=== PATIENT | male | born 1945 | race Caucasian/White ===

== ENCOUNTER 2021-01-12 02:00 | Outpatient (CLI) | payer OTHER, SELFPAY ==
--- NOTE | 2021-01-12 07:45 | DI.RAD_ITS ---
Exam(s) XR CERVICAL SPINE COMP 4-5V EXAM: XR CERVICAL SPINE COMP 4-5V CLINICAL HISTORY: popping/cracking of neck,NECK PAIN, M54.2. TECHNIQUE: 2D digital imaging was performed. COMPARISON: No exams were available for comparison FINDINGS: BONES: No fracture or destructive lesion. Facet joint degenerative changes. There is neural foramina l narrowing at multiple levels bilaterally, mild to moderate. DISKS: Disc space narrowing and osteophyte formation at C5-6 and C6-7. The remaining intervertebral disc spaces are maintained. ALIGNMENT: Cervical spinal alignment is within normal limits. The odontoid and atlantoaxial articulat ions are normal. SOFT TISSUE: Normal. The lung apices are clear. IMPRESSION: Degenerative changes, greatest at C5-6 and C6-7. DATA REPOSITORY: RADIATION DOSE DELIVERED:
== END 2021-01-12 02:20 ==
PROVIDERS: PCP Nurse Practitioner Family; Visit Provider Nurse Practitioner Family
DX: M47.812 Spondylosis without myelopathy or radiculopathy, cervical region (principal)
CPT/HCPCS: 72050

== ENCOUNTER 2021-01-12 09:49 | Outpatient (CLI) | payer OTHER, SELFPAY ==
[2021-01-12 13:52] LABS: ALT 15 U/L (16-63); AST 14 U/L (15-37); Albumin 3.5 g/dL (3.4-5.0); Alkaline Phosphatase 63 U/L (46-116); Anion Gap 9.4 mmol/L (3-11); BUN 11 mg/dL (7-18); CO2 26.6 mmol/L (21.0-32.0); Calcium 8.9 mg/dL (8.5-10.1); Calculated LDL 118 mg/dL (<100); Chloride 105 mmol/L (98-107); Cholesterol 217 mg/dL (<200); Glucose 93 mg/dL (74-106); HDL Cholesterol 51 mg/dL (40-60); Potassium 4.1 mmol/L (3.5-5.1); Sodium 141 mmol/L (136-145); Total Protein 6.8 g/dL (6.4-8.2); Triglyceride 240 mg/dL (<150)
[2021-01-12 22:41] LABS: PSA, Screening 2.9 ng/mL (0.0-6.5)
== END 2021-01-12 09:50 | disposition home or self-care (01) ==
LOC: LBO 09:52
PROVIDERS: PCP Nurse Practitioner Family; Visit Provider Nurse Practitioner Family
DX: E78.5 Hyperlipidemia, unspecified (principal); R73.09 Other abnormal glucose; R03.0 Elevated blood-pressure reading, without diagnosis of hypertension; F52.21 Male erectile disorder; Z12.5 Encounter for screening for malignant neoplasm of prostate
CPT/HCPCS: 36415; 80053; 80061; 84153; 83036

== ENCOUNTER → 2021-02-18 10:19 | Outpatient (BNVA) | payer OTHER, SELFPAY | PROVIDERS: PCP Nurse Practitioner Family; Referring Provider Nurse Practitioner Family; Visit Provider Physical Therapy Assistant | DX: Z12.11 Encounter for screening for malignant neoplasm of colon (principal) ==

== ENCOUNTER 2021-03-08 03:42 | Outpatient (CLI) | payer OTHER, SELFPAY ==
[2021-03-08 10:18] LABS: Source Nasal/Nares
[2021-03-08 12:50] LABS: COVID-19 PCR Negative (Negative)
== END 2021-03-08 03:43 | disposition home or self-care (01) ==
LOC: LBO 03:42
PROVIDERS: PCP Nurse Practitioner Family; Visit Provider Surgery
DX: Z20.822 Contact with and (suspected) exposure to COVID-19 (principal); Z01.818 Encounter for other preprocedural examination
CPT/HCPCS: 87635

== ENCOUNTER 2021-03-10 07:42 | Day surgery (SDC) | payer OTHER, SELFPAY ==
--- NOTE | 2021-03-10 06:25 | W.ANESPRE ---
General Info Date of Service Date Performed: 03/10/21 Height: 6 ft Weight: 106.708 kg Body Mass Index (BMI): 31.8 Surgical Procedure: Operation Date: 03/10/21 09:05 Proposed Procedures Side Surgeon p Colonoscopy Candis Nash MD Meds Allergies and Home Medications Allergies Allergy/AdvReac Type Severity Reaction Status Date / Time No Known Allergies Allergy Verified 03/10/21 07:54 Home Medication Medication Instructions Recorded aspirin 325 mg PO DAILY tab-cap 11/22/12 ramipril 2.5 mg PO DAILY #90 tab-cap 11/19/14 sildenafil 100 mg tablet 100 mg PO DAILY PRN 12/04/20 atorvastatin 20 mg tablet 40 mg PO DAILY #180 tab-cap 01/06/21 omeprazole 20 mg capsule,delayed 20 mg PO DAILY #90 cap 01/06/21 release bisacodyl 5 mg tablet,delayed 5 mg PO ONCE #4 tab 02/18/21 release polyethylene glycol 3350 17 238 g PO ONCE #238 g 02/18/21 gram/dose oral powder Current Visit Medications: Current Medications Generic Name Dose Route Start Last Admin Trade Name Freq PRN Reason Stop Dose Admin Ringer's Solution 1,000 mls @ 80 mls/hr 03/10/21 06:00 IV 04/08/21 23:59 INFUSION RAFAEL IV Miscellaneous Supplies 1 each 03/10/21 06:00 Iv Access IV 04/08/21 23:59 DIRECTED RAFAEL Sodium Chloride 0 ml 03/10/21 06:00 Normal Saline Flush 10 Ml Syr IV 04/08/21 23:59 PRN PRN Sodium Chloride 0 ml 03/10/21 06:00 Normal Saline 10 Ml Vial IJ 04/08/21 23:59 DIRECTED PRN Sterile Water 0 ml 03/10/21 06:00 Water,Injection,Sterile 10 Ml Vial IJ 04/08/21 23:59 DIRECTED PRN PFSH Active Problems Active Problems: Problem Status Onset Code Smoker F17.200 Overweight E66.3 Hyperlipidemia E78.5 Erectile disorder, generalized, mild F52.21 GERD (gastroesophageal reflux disease) K21.9 Chronic fatigue R53.82 Medical History Medical History Chronic fatigue GERD (gastroesophageal reflux disease) High cholesterol Surgical History Surgical History (Reviewed 03/10/21 @ 07:54 by Melissa Mendieta H/O surgical procedure triple bypass-2000 Tobacco Smoking/Tobacco Use Status: Current every day Tobacco Type: cigarettes Second hand exposure: Yes Alcohol Alcohol Intake: current Alcohol intake frequency: 3 or more drinks per day Alcohol type: hard liquor Details: Reports drinking 4-5 drinks of Vodka per day Substance Use Substance use: Never Substance use type: does not use Vital Signs and Lab Results Vital Signs Most Recent Vital Signs in EMR: Temp Pulse Resp BP Pulse Ox 36.3 C L 93 H 18 103/58 L 97 03/10/21 07:45 03/10/21 07:45 03/10/21 07:45 03/10/21 07:45 03/10/21 07:45 Lab Results Blood Type / Crossmatch: No Data to Display Complete Blood Count: No Data to Display Complete Metabolic Panel: No Data to Display Liver Function Panel: No Data to Display Coagulation Panel: No Data to Display Cardiac Panel: No Data to Display Arterial Blood Gas: No Data to Display Venous Blood Gas: No Data to Display Pancreas Panel: No Data to Display Thyroid Panel: No Data to Display Infectious Disease: Coronavirus (COVID-19)(PCR) Negative (Negative) 03/08/21 08:38 03/08/21 Coronavirus 2019 Source Nasal/Nares 03/08/21 08:38 03/08/21 Blood Cultures: No Data to Display Toxicology Panel: No Data to Display Imaging and Studies Imaging and Studies Echocardiogram Summary: 2014: LVEF 65%, mild LVH, no hemodynamically sig valve dz. Anesthesia Assessment and Plan Anesthesia History Personal History: No History of Anesthesia Complications Family History: No Family History of Anesthesia Complications Exercise Tolerance Exercise Tolerance: Metabolic Equivalents>4 Cardiac & Pulmonary Exam Cardiac Exam: Normal S1/S2 Heart Sounds Pulmonary Exam: Clear Bilateral Breath Sounds Airway Exam Known Difficult Airway: No Mallampati Class: 3 Mouth Opening: Normal (> 3cm) Thyromental Distance: Less than 3 cm Neck Range of Motion: Limited ROM Neck Circumference: Thick Teeth Condition: Loose or Chipped ASA Classification ASA Score: ASA 3 Emergency Case?: No NPO Status NPO Status: NPO Clears >2 hours, Solids >8 hours Anesthesia Plan Resuscitation Status: Full Code Anesthesia Technique: General Anesthesia Airway Planned: Natural Airway Monitors Used: Standard Monitors Preoperative Comments:: 75 yo male for screening colonoscopy. 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
--- NOTE | 2021-03-10 06:42 | W.COLOREPORT ---
Colonoscopy Report Date of procedure: 03/10/21 Pre-op diagnosis general: Colon Cancer Screening Post-op diagnosis procedure note: other (gross-diverticulosis, polyps) Procedure: Colonoscopy with polypectomy Surgeon: Candis Nahs Anesthesia Type: General:No Airway (see anesthesia record) Estimated blood loss (mL): 3 Pathology: other (Sigmoid polyps x2, Transverse polyps x2, ascending and descending polyp) Complications: None Disposition: same day Indications: The patient is here for Colonoscopy pre-op. He has no family history of colon cancer. He has not had any bowel habit changes. -Discussed colonoscopy bowel prep as well as the procedure. Discussed possible complications of the procedure to include bleeding, pain, perforation, missed small lesion/polyp, sore throat, aspiration and adverse reaction to the medications. Questions were answered to patient?s satisfaction. No guarantees were implied or given. Prep: Miralax/Dulcolax Procedure Start Time: 09:31 Procedure End Time: 10:04 Retraction Time: 21 minutes Findings: gross-diverticulosis multiple polyps Procedure Description: After informed consent was obtained the patient was taken to the procedure room and placed in a left decubitous position. Monitors were applied and a time out was done. The patients name, date of , procedure, allergies to medications and metal in their body was reviewed. The patient was then sedated. Once sedated and comfortable a rectal exam was done. External exam was normal. Internal exam revealed a normal sphincter tone and no palpable masses. The prostate felt smooth. The scope was then introduced and retro-flexed. No internal hemorrhoids, polyps or masses were identified on retro-flexion. The scope was then advanced to the cecum without difficulty. The ileocecal vlave and appendiceal orifice were identified. The prep was adequate. The scope was then slowly retracted over 21 minutes back into the rectum. Polyps were removed with cold forceps in the ascending, transverse x2, descending and sigmoid x2 colon. There was [moderate gross- diverticulosis noted. The scope was removed and the patient was woken up and taken back to Same day surgery in stable condition. The patient tolerated the procedure well and there were no immediate complications. Follow up: The patient should follow up in 3-5 years unless they develop changes in bowel habits or other new gastrointestinal complaints.
--- NOTE | 2021-03-10 06:42 | W.PM.DSUDISC ---
Discharge Plan Disposition Patient Disposition: HOME Condition: Good Discharge Details Reason For Visit: Colonoscopy Attending Provider: Candis Nash Primary Care Provider: Constantine Lincoln Home Meds and New Rx's Prescriptions: Continued atorvastatin [Lipitor] 20 mg tablet 40 mg PO DAILY Qty: 180 RF: 4 omeprazole 20 mg capsule,delayed release(DR/EC) 20 mg PO DAILY Qty: 90 RF: 4 aspirin 325 MG tablet 325 mg PO DAILY RF: 0 sildenafil [Viagra] 100 mg tablet 100 mg PO DAILY PRNRF: 0 Discontinued bisacodyl [Dulcolax (bisacodyl)] 5 mg tablet,delayed release (DR/EC) 5 mg PO ONCE Qty: 4 RF: 0 polyethylene glycol 3350 17 gram/dose powder 238 g PO ONCE Qty: 238 RF: 0 No Action ramipril 5 MG capsule 2.5 mg PO DAILY Qty: 90 RF: 4 Discharge Instructions Instructions: Diverticulosis (DC), Colorectal Polyps (DC) Additional Instructions: Findings: multiple polyps diverticulosis Follow up: 3-5 years, I will send a letter in the mail with results and final recommendation for next colonoscopy Please call if you develop: fevers >101.5 Nausea or Vomiting Abdominal pain that is not transient Rectal bleeding that is more then a tbsp A hard abdomen and inability to pass gas DAY SURGERY UNIT POST ENDOSCOPY INSTRUCTIONS Instructions for everyone who is given Anesthesia: For your safety, please do the following for the next 24 Hours: a. Do not drive or operate dangerous equipment b. Do not drink alcohol beverages or use any recreational drugs for the first 24 hours or while taking pain medications. The medications in your body may have a reaction that can be dangerous. c. Do not make any important decisions or sign any important papers 1. Generally there are no restrictions on your activity after a day or so has gone by, but you may feel a bit fatigued for a few days. 2. After you arrive home you may have a light meal and return to a normal diet as you can tolerate it without feeling sick to your stomach. 3. After surgery, you may feel pain or discomfort. This should be only transient, but if it persists please contact your doctor. 4. If there are any questions regarding the findings of your procedure, please feel free to contact your doctor. 6. If you are unable to contact your doctor with a problem, contact the hospital at [phone]. 4. Continue all your regular medications unless directed otherwise. I understand the above instructions and have no questions. Signature of Patient or Responsible Adult Escort Date/Time Name of Responsible Adult Escort Signature of Nurse Date/Time Activity:: Activity as Tolerated Diet:: high fiber Discharge Orders Discharge Orders: Discharge Order (Routine); Ordered 03/10/21 Ordered By: Candis Nash
[2021-03-10 07:45] VITALS: BP 103/58; PULSE 93; RESP 18; TEMP 36.3; O2SAT 97
[2021-03-10] MEDS: Lactated Ringers 1,000 ML 80 ML IV (08:10)
[2021-03-10 08:25] VITALS: BMI 31.8
--- NOTE | 2021-03-10 09:32 | BOWEL_PTH ---
PATIENT: Clyde Puente LOC: [facility] U#:[id number] AGE/SX: 75/M ROOM: RE03/10/[address]: Candis Nash MD : 1945 BED: DIS: 03/10/2021 SPEC #: [id number] RECD: 03/10/21 12:44 STATUS: SASHA RELupe #: [id number] JOSELYN: 03/10/21 09:[address]: Candis Nash DEPT: Surgical Specimen RECD BY: Casi Mcelroy ENTERED: 03/10/21 12:47 SP TYPE: Bowel OTHR DR: Constantine Lincoln, [employer] Tissues: 1 - BIOPSY BOWEL 2 - BIOPSY BOWEL 3 - BIOPSY BOWEL 4 - BIOPSY BOWEL 5 - BIOPSY BOWEL Procedures: GROSS AND MICRO LEVEL 4 Comments: [id number]
[2021-03-10 10:15] VITALS: BP 102/64; PULSE 65; RESP 16; TEMP 36.4; O2SAT 96
[2021-03-10 10:40] VITALS: BP 102/64; PULSE 65; RESP 16; TEMP 36.4; O2SAT 96
--- NOTE | 2021-03-10 10:47 | W.ANESPOSTOP ---
Postoperative Evaluation Date, Time and Location Date Performed: 03/10/21 Time Performed: 10:50 Patient Location: Day Surgery Unit Vital Signs Most Recent Imported Vital Signs: Most Recent Vital Signs Temp Pulse Resp BP Pulse Ox 36.4 C L 65 16 102/64 96 03/10/21 10:15 03/10/21 10:15 03/10/21 10:15 03/10/21 10:15 03/10/21 10:15 Pain Score Most Recent Pain Score: Most Recent Pain Score Pain Level 0 03/10/21 10:15 Assessment Mental Status: Awake (Alert & Oriented to Patient Baseline) Airway and Respiratory Function: Patent airway with normal (patient baseline) respiratory exam Cardiovascular Function: Hemodynamically Stable Hydration Status: Adequately Hydrated Nausea & Vomiting: No Nausea or Vomiting Pain: Pt. Denies Any Pain Peripheral Nerve Block: Patient did not receive a nerve block
--- NOTE | 2021-03-10 10:58 | W.ANESPOSTOP ---
Postoperative Evaluation Date, Time and Location Date Performed: 03/10/21 Time Performed: 10:58 Patient Location: Day Surgery Unit Vital Signs Most Recent Imported Vital Signs: Most Recent Vital Signs Temp Pulse Resp BP Pulse Ox 36.4 C L 65 16 102/64 96 03/10/21 10:15 03/10/21 10:15 03/10/21 10:15 03/10/21 10:15 03/10/21 10:15 Most Recent Vital Signs Temp Pulse Resp BP Pulse Ox 36.4 C L 65 16 102/64 96 03/10/21 10:15 03/10/21 10:15 03/10/21 10:15 03/10/21 10:15 03/10/21 10:15 Pain Score Most Recent Pain Score: Most Recent Pain Score Pain Level 0 03/10/21 10:15 Assessment Mental Status: Awake (Alert & Oriented to Patient Baseline) Airway and Respiratory Function: Patent airway with normal (patient baseline) respiratory exam Cardiovascular Function: Hemodynamically Stable Hydration Status: Adequately Hydrated Nausea & Vomiting: No Nausea or Vomiting Pain: Pt. Denies Any Pain Peripheral Nerve Block: Patient did not receive a nerve block
== END 2021-03-10 11:00 | disposition home or self-care (01) ==
LOC: SUR 07:43
PROVIDERS: PCP Nurse Practitioner Family; Visit Provider Surgery
PROC: 0DJD8ZZ Inspection of Lower Intestinal Tract, Via Natural or Artificial Opening Endoscopic (ICD-10-PCS; CPT 45378; principal; 2021-03-10 09:00)
DX: Z12.11 Encounter for screening for malignant neoplasm of colon (principal); K57.30 Diverticulosis of large intestine without perforation or abscess without bleeding; K21.9 Gastro-esophageal reflux disease without esophagitis; D12.5 Benign neoplasm of sigmoid colon; D12.3 Benign neoplasm of transverse colon; D12.2 Benign neoplasm of ascending colon; D12.4 Benign neoplasm of descending colon
CPT/HCPCS: 45380; 88305; J2001

== ENCOUNTER → 2021-11-16 08:25 | Outpatient (BNVA) | payer MEDICARE, SELFPAY | PROVIDERS: PCP Nurse Practitioner Family; Referring Provider Nurse Practitioner Family; Visit Provider Surgery | DX: R11.10 Vomiting, unspecified (principal) | CPT/HCPCS: 99212 ==

== ENCOUNTER 2021-12-03 01:09 | Outpatient (CLI) | payer MEDICARE, SELFPAY ==
[2021-12-03 12:31] LABS: Source Nasal/Nares
[2021-12-03 16:50] LABS: COVID-19 PCR Negative (Negative)
== END 2021-12-03 01:10 | disposition home or self-care (01) ==
LOC: LBO 01:09
PROVIDERS: PCP Nurse Practitioner Family; Visit Provider Surgery
DX: Z20.822 Contact with and (suspected) exposure to COVID-19 (principal); Z01.818 Encounter for other preprocedural examination
CPT/HCPCS: 87635; U0005

== ENCOUNTER 2021-12-06 06:54 | Day surgery (SDC) | payer MEDICARE, SELFPAY ==
--- NOTE | 2021-12-06 06:11 | W.ANESPRE ---
General Info Height: 6 ft Surgical Procedure: Operation Date: 12/06/21 08:20 Proposed Procedure Side Surgeon p Gastroscopy Candis Nash MD Meds Allergies and Home Medications Allergies Allergy/AdvReac Type Severity Reaction Status Date / Time No Known Allergies Allergy Verified 11/16/21 08:28 Home Medication Medication Instructions Recorded aspirin 325 mg tablet 325 mg PO DAILY 11/22/12 ramipril 5 mg capsule 2.5 mg PO DAILY #90 tab-caps 11/19/14 sildenafil 100 mg tablet (Viagra) 100 mg PO DAILY PRN 12/04/20 atorvastatin 20 mg tablet (Lipitor) 40 mg PO DAILY #180 tab-caps 01/06/21 omeprazole 20 mg capsule,delayed 20 mg PO DAILY #90 caps 01/06/21 release Current Visit Medications: Current Medications Generic Name Dose Route Start Last Admin Trade Name Freq PRN Reason Stop Dose Admin Ringer's Solution 1,000 mls @ 80 mls/hr 12/06/21 06:00 IV 01/02/22 23:59 INFUSION RAFAEL IV Miscellaneous Supplies 1 each 12/06/21 06:00 Iv Access IV 01/02/22 23:59 DIRECTED RAFAEL Sodium Chloride 0 ml 12/06/21 06:00 Normal Saline Flush 10 Ml Syr IV 01/02/22 23:59 PRN PRN Sodium Chloride 0 ml 12/06/21 06:00 Normal Saline 10 Ml Vial IJ 01/02/22 23:59 DIRECTED PRN Sterile Water 0 ml 12/06/21 06:00 Water,Injection,Sterile 10 Ml Vial IJ 01/02/22 23:59 DIRECTED PRN PFSH Active Problems Active Problems: Problem Status Onset Code Regurgitation of food R11.10 Tubular adenoma of colon ~02/2021 D12.6 Smoker F17.200 Overweight E66.3 GERD (gastroesophageal reflux disease) K21.9 Medical History Medical History Chronic fatigue Coronary artery disease (11/19/14) h/0 cabg Erectile disorder, generalized, mild High cholesterol Hyperlipidemia Surgical History Surgical History H/O surgical procedure triple bypass-2000 History of colonoscopy (~02/2021) Tobacco Smoking/Tobacco Use Status: Current every day Tobacco Type: cigarettes Second hand exposure: Yes Alcohol Alcohol Intake: current Alcohol intake frequency: 3 or more drinks per day Alcohol type: hard liquor Details: Reports drinking 4-5 drinks of Vodka per day Substance Use Substance use: Never Substance use type: does not use Vital Signs and Lab Results Lab Results Blood Type / Crossmatch: No Data to Display Complete Blood Count: No Data to Display Complete Metabolic Panel: No Data to Display Liver Function Panel: No Data to Display Coagulation Panel: No Data to Display Cardiac Panel: No Data to Display Arterial Blood Gas: No Data to Display Venous Blood Gas: No Data to Display Pancreas Panel: No Data to Display Thyroid Panel: No Data to Display Infectious Disease: Coronavirus (COVID-19)(PCR) Negative (Negative) 12/03/21 08:20 Coronavirus 2019 Source Nasal/Nares 12/03/21 08:20 Blood Cultures: No Data to Display Toxicology Panel: No Data to Display Imaging and Studies Imaging and Studies Study information below may be from another EMR and interpreted by another provider. Please see original notes in EMR for more complete details. Echocardiogram Summary: 2014: LVEF 65%, mild LVH, no hemodynamically sig valve dz. Anesthesia Assessment and Plan Anesthesia History Personal History: No History of Anesthesia Complications Family History: No Family History of Anesthesia Complications Exercise Tolerance Exercise Tolerance: Metabolic Equivalents>4 Implantable Cardiac Device Does patient have a Pacemaker or an ICD?: No Airway Exam Known Difficult Airway: No Mallampati Class: 3 Mouth Opening: Normal (> 3cm) Thyromental Distance: Less than 3 cm Neck Range of Motion: Limited ROM Neck Circumference: Thick Teeth Condition: Loose or Chipped ASA Classification ASA Score: ASA 3 Emergency Case?: No Anesthesia Plan Resuscitation Status: Full Code Anesthesia Technique: General Anesthesia Airway Planned: Natural Airway Monitors Used: Standard Monitors Preoperative Comments:: 75 yo male with intermittent regurgitation of food which has been increasing in frequency here for EGD with possible dilation. 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
--- NOTE | 2021-12-06 06:36 | COLE_ITS ---
Colonoscopy Report Date of procedure: 12/06/21 Pre-op diagnosis general: Colon Cancer Screening Procedure: Colonoscopy Surgeon: Candis Nash Anesthesia Type: General:No Airway Complications: None Disposition: same day Indications: Clyde has been having intermittent regurgitation of food for the last year.? He has now had 3 to 4 weeks without an episode.? He wonders if that is due to the fact that he is eating smaller meals.? He has also lost weight.? He has lost about 20 pounds since February of last year.? He does have a cardiac history but has been asymptomatic for many years.? He had a colonoscopy last year without any issues.? He has not had any new cardiac symptoms.? Differential diagnosis includes hiatal hernia, esophageal stricture or esophageal diverticulum. Risks, benefits and complications have been reviewed. Complications include but are not limited to bleeding, pain, perforation, sore throat, aspiration, and adverse reaction to the medications.? Questions were entertained and answered to their satisfaction and they wished to proceed. No guarantees were given or implied. Prep: Miralax/Dulcolax Procedure Description: After informed consent was obtained the patient was taken to the procedure room and placed in a left decubitous position. Monitors were applied and a time out was done. The patients name, date of , procedure, allergies to medications and metal in their body was reviewed. The patient was then sedated. Once sedated and comfortable a rectal exam was done. External exam was normal. Internal exam revealed a normal sphincter tone and no palpable masses. The prostate []. The scope was then introduced and retro-flexed. [] internal hemorrhoids, polyps or masses were identified on retro-flexion. The scope was then advanced to the cecum [] difficulty. The ileocecal vlave and appendiceal orifice were identifi ed. The prep was []. The scope was then slowly retracted over [] minutes back into the rectum. Polyps were removed at []. There was [] diverticulosis noted. The scope was removed and the patient was woken up and taken back to Same day surgery in stable condition. The patient tolerated the procedure well and there were no immediate complications. Follow up: The patient should follow up in [] years unless they develop changes in bowel habits or other new gastrointestinal complaints.
--- NOTE | 2021-12-06 06:40 | W.PM.DSUDISC ---
Discharge Plan Disposition Patient Disposition: HOME Condition: Good Discharge Details Reason For Visit: EGD Attending Provider: Candis Nash Primary Care Provider: Constantine Lincoln Home Meds and New Rx's Prescriptions: Continued atorvastatin [Lipitor] 20 mg tablet 40 mg PO DAILY Qty: 180 omeprazole 20 mg capsule,delayed release(DR/EC) 20 mg PO DAILY Qty: 90 4RF aspirin 325 MG tablet 325 mg PO DAILY ramipril 5 MG capsule 2.5 mg PO DAILY Qty: 90 sildenafil [Viagra] 100 mg tablet 100 mg PO DAILY PRN Rx Instructions: administer 30 minutes to 4 hours before activity Discharge Instructions Additional Instructions: Findings: mild inflammation of the stomach and esophagus there was food within the stomach and the esophagus Follow up: I am ordering 2 studies to look at the function of the stomach and esophagus. You should get a call from Radiology to get those studies scheduled. Please call if you develop: fevers >101.5 Nausea or Vomiting Abdominal pain that is not transient Rectal bleeding that is more then a tbsp A hard abdomen and inability to pass gas DAY SURGERY UNIT POST ENDOSCOPY INSTRUCTIONS Instructions for everyone who is given Anesthesia: For your safety, please do the following for the next 24 Hours: a. Do not drive or operate dangerous equipment b. Do not drink alcohol beverages or use any recreational drugs for the first 24 hours or while taking pain medications. The medications in your body may have a reaction that can be dangerous. c. Do not make any important decisions or sign any important papers 1. Generally there are no restrictions on your activity after a day or so has gone by, but you may feel a bit fatigued for a few days. 2. After you arrive home you may have a light meal and return to a normal diet as you can tolerate it without feeling sick to your stomach. 3. After surgery, you may feel pain or discomfort. This should be only transient, but if it persists please contact your doctor. 4. If there are any questions regarding the findings of your procedure, please feel free to contact your doctor. 6. If you are unable to contact your doctor with a problem, contact the hospital at [phone]. 7. Continue all your regular medications unless directed otherwise. I understand the above instructions and have no questions. Signature of Patient or Responsible Adult Escort Date/Time Name of Responsible Adult Escort Signature of Nurse Date/Time Activity:: Activity as Tolerated Diet:: small meals often. Discharge Orders Discharge Orders: Discharge Order (Routine); Ordered 12/06/21 Ordered By: Candis Nash
--- NOTE | 2021-12-06 06:43 | W.PM.ENDDOP ---
Date of service: 12/06/21 Time of Service: 08:05 Endoscopy Report DATE OF PROCEDURE: 12/06/21 PRE-OP DIAGNOSIS: regurgitation POST-OP DIAGNOSIS: other (mild gastritis and esophagitis, esophagus and stomach with food) PROCEDURE: EGD with biopsies SURGEON: Candis Nash ANESTHESIA TYPE: General:No Airway ESTIMATED BLOOD LOSS: 2 PATHOLOGY: other (antrum and GE junction bx) COMPLICATIONS: None DISPOSITION: same day INDICATIONS: Clyde has been having intermittent regurgitation of food for the last year.? He has now had 3 to 4 weeks without an episode.? He wonders if that is due to the fact that he is eating smaller meals.? He has also lost weight.? He has lost about 20 pounds since February of last year.? He does have a cardiac history but has been asymptomatic for many years.? He had a colonoscopy last year without any issues.? He has not had any new cardiac symptoms.? Differential diagnosis includes hiatal hernia, esophageal stricture or esophageal diverticulum. Risks, benefits and complications have been reviewed. Complications include but are not limited to bleeding, pain, perforation, sore throat, aspiration, and adverse reaction to the medications.? Questions were entertained and answered to their satisfaction and they wished to proceed. No guarantees were given or implied. Proceed with EGD under sedation. FINDINGS: Mild gastritis and esophagitis Food within the esophagus and stomach PROCEDURE DESCRIPTION: After informed consent was obtained the patient was take to the procedure room and placed in a supine position. Monitors were applied and a time out was done. The patients name, date of , procedure type, allergies to medications and metal in their body was reviewed. A bite block was placed and the patient was sedated. Once sedated and comfortable the gastroscope was advanced through the oropharynx which was grossly normal into the esophagus. The proximal and mid-esophagus were normal. In the distal esophagus there was mild inflammation noted. There was liquid food noted shelter up the esophagus. The scope was advanced into the stomach. There was mild inflammation, some benign appearing polyps and liquid food. The scope was advanced through the pylorus into the 3rd portion of the duodenum. The duodenum was noted to be normal. The scope was retracted back into the stomach and biopsies were done to rule out H. pylori. There were no ulcers. There were some benign appearing polyps which were biopsied. There was liquid food within the stomach which was suctioned. The scope was retroflexed. The cardia and fundus were noted to be normal. There was no hiatal hernia noted. The scope was retracted back into the esophagus and biopsies were done of the GE junction to rule out Taylor's. The Z line was regular. The GE junction was at 38 cm. The scope was removed and the patient was woken up and taken back to [facility] in stable condition. Follow up: I will order a gastric emptying study and a Barium swallow.
[2021-12-06 07:07] VITALS: BP 121/71; PULSE 64; RESP 16; TEMP 36.1; O2SAT 99
[2021-12-06] MEDS: Lactated Ringers 1,000 ML 80 ML IV (07:20)
--- NOTE | 2021-12-06 07:22 | W.ANESPRE ---
General Info Date of Service Date Performed: 12/06/21 Height: 6 ft Weight: 98.4 kg Body Mass Index (BMI): 29.4 Surgical Procedure: Operation Date: 12/06/21 08:20 Proposed Procedure Side Surgeon p Gastroscopy Candis Nash MD Actual Procedure Side Surgeon p Gastroscopy Not Applicable Candis Nash MD Pre-Op Diagnosis Post-Op Diagnosis Regurgitation Meds Allergies and Home Medications Allergies Allergy/AdvReac Type Severity Reaction Status Date / Time No Known Allergies Allergy Verified 11/16/21 08:28 Home Medication Medication Instructions Recorded aspirin 325 mg tablet 325 mg PO DAILY 11/22/12 ramipril 5 mg capsule 2.5 mg PO DAILY #90 tab-caps 11/19/14 sildenafil 100 mg tablet (Viagra) 100 mg PO DAILY PRN 12/04/20 atorvastatin 20 mg tablet (Lipitor) 40 mg PO DAILY #180 tab-caps 01/06/21 omeprazole 20 mg capsule,delayed 20 mg PO DAILY #90 caps 01/06/21 release Current Visit Medications: Current Medications Generic Name Dose Route Start Last Admin Trade Name Praveenq PRN Reason Stop Dose Admin Hyoscyamine Sulfate 0.125 mg 12/06/21 06:40 Hyoscyamine 0.125 Mg Sl/Oral/Chew SL DIRECTED PRN Ringer's Solution 1,000 mls @ 80 mls/hr 12/06/21 06:00 12/06/21 07:20 IV 01/02/22 23:59 80 mls/hr INFUSION RAFAEL Administration IV Miscellaneous Supplies 1 each 12/06/21 06:00 Iv Access IV 01/02/22 23:59 DIRECTED RAFAEL Ondansetron HCl 4 mg 12/06/21 06:40 Ondansetron 4 Mg/2 Ml Vial IVP Q4H PRN PRN Nausea / Vomiting Sodium Chloride 0 ml 12/06/21 06:00 Normal Saline Flush 10 Ml Syr IV 01/02/22 23:59 PRN PRN Sodium Chloride 0 ml 12/06/21 06:00 Normal Saline 10 Ml Vial IJ 01/02/22 23:59 DIRECTED PRN Sterile Water 0 ml 12/06/21 06:00 Water,Injection,Sterile 10 Ml Vial IJ 01/02/22 23:59 DIRECTED PRN PFSH Active Problems Active Problems: Problem Status Onset Code Regurgitation of food R11.10 Tubular adenoma of colon ~02/2021 D12.6 Smoker F17.200 Overweight E66.3 GERD (gastroesophageal reflux disease) K21.9 Medical History Medical History Chronic fatigue Coronary artery disease (11/19/14) h/0 cabg Erectile disorder, generalized, mild High cholesterol Hyperlipidemia Surgical History Surgical History H/O surgical procedure triple bypass-2000 History of colonoscopy (~02/2021) Tobacco Smoking/Tobacco Use Status: Current every day Tobacco Type: cigarettes Second hand exposure: Yes Alcohol Alcohol Intake: current Alcohol intake frequency: 3 or more drinks per day Alcohol type: hard liquor Details: Reports drinking 4-5 drinks of Vodka per day Substance Use Substance use: Never Substance use type: does not use Vital Signs and Lab Results Vital Signs Most Recent Vital Signs in EMR: Most Recent Vital Signs Temp Pulse Resp BP Pulse Ox 36.1 C L 64 16 121/71 99 12/06/21 07:07 12/06/21 07:07 12/06/21 07:07 12/06/21 07:07 12/06/21 07:07 Lab Results Blood Type / Crossmatch: No Data to Display Complete Blood Count: No Data to Display Complete Metabolic Panel: No Data to Display Liver Function Panel: No Data to Display Coagulation Panel: No Data to Display Cardiac Panel: No Data to Display Arterial Blood Gas: No Data to Display Venous Blood Gas: No Data to Display Pancreas Panel: No Data to Display Thyroid Panel: No Data to Display Infectious Disease: Coronavirus (COVID-19)(PCR) Negative (Negative) 12/03/21 08:20 Coronavirus 2019 Source Nasal/Nares 12/03/21 08:20 Blood Cultures: No Data to Display Toxicology Panel: No Data to Display Imaging and Studies Imaging and Studies Study information below may be from another EMR and interpreted by another provider. Please see original notes in EMR for more complete details. Echocardiogram Summary: 2014: LVEF 65%, mild LVH, no hemodynamically sig valve dz. Anesthesia Assessment and Plan Anesthesia History Personal History: No History of Anesthesia Complications Family History: No Family History of Anesthesia Complications Exercise Tolerance Exercise Tolerance: Metabolic Equivalents>4 Cardiac & Pulmonary Exam Cardiac Exam: Normal S1/S2 Heart Sounds Pulmonary Exam: Wheezing Present (ANGELICA) and Rhonchi Present (ANGELICA) Implantable Cardiac Device Does patient have a Pacemaker or an ICD?: No Airway Exam Known Difficult Airway: No Mallampati Class: 3 Mouth Opening: Normal (> 3cm) Thyromental Distance: Less than 3 cm Neck Range of Motion: Limited ROM Neck Circumference: Thick Teeth Condition: Loose or Chipped ASA Classification ASA Score: ASA 3 Emergency Case?: No NPO Status NPO Status: NPO Clears >2 hours, Solids >8 hours Anesthesia Plan Resuscitation Status: Full Code Anesthesia Technique: General Anesthesia Airway Planned: Natural Airway Monitors Used: Standard Monitors
[2021-12-06 07:24] VITALS: BMI 29.4
--- NOTE | 2021-12-06 08:00 | STOM_PTH ---
PATIENT: Clyde Puente LOC: [facility] U#:[id number] AGE/SX: 76/M ROOM: RE12/06/[address]: Candis Nash MD : 1945 BED: DIS: 12/06/2021 SPEC #: [id number] RECD: 12/06/21 12:11 STATUS: SASHA RELupe #: [id number] JOSELYN: 12/06/21 08:[address]: Candis Nash DEPT: Surgical Specimen RECD BY: Casi Mcelroy ENTERED: 12/06/21 12:13 SP TYPE: STOMACH OTHR DR: Constantine Lincoln, [employer] Tissues: 1 - STOMACH BIOPSY 2 - ESOPHAGUS BIOPSY 3 - STOMACH BIOPSY Procedures: GROSS AND MICRO LEVEL 4 Comments:
[2021-12-06 08:14] VITALS: BP 99/73; PULSE 79; RESP 16; TEMP 36.2; O2SAT 95
[2021-12-06 08:50] VITALS: BP 109/43; PULSE 73; RESP 16; TEMP 36.3; O2SAT 96
--- NOTE | 2021-12-06 09:00 | W.ANESPOSTOP ---
Postoperative Evaluation Date, Time and Location Date Performed: 12/06/21 Time Performed: 08:20 Patient Location: Day Surgery Unit Vital Signs Most Recent Imported Vital Signs: Most Recent Vital Signs Temp Pulse Resp BP Pulse Ox 36.3 C L 73 16 109/43 L 96 12/06/21 08:50 12/06/21 08:50 12/06/21 08:50 12/06/21 08:50 12/06/21 08:50 Pain Score Most Recent Pain Score: Most Recent Pain Score Pain Level 4 12/06/21 08:50 Assessment Mental Status: Awake (Alert & Oriented to Patient Baseline) Airway and Respiratory Function: Patent airway with normal (patient baseline) respiratory exam Cardiovascular Function: Hemodynamically Stable Hydration Status: Adequately Hydrated Nausea & Vomiting: No Nausea or Vomiting Pain: Pt. Denies Any Pain Peripheral Nerve Block: Patient did not receive a nerve block
== END 2021-12-06 06:55 | disposition home or self-care (01) ==
PROVIDERS: PCP Nurse Practitioner Family; Visit Provider Surgery
PROC: 0DJ68ZZ Inspection of Stomach, Via Natural or Artificial Opening Endoscopic (ICD-10-PCS; CPT 43235; principal; 2021-12-06 08:15)
DX: K29.70 Gastritis, unspecified, without bleeding (principal); K20.90 Esophagitis, unspecified without bleeding; K31.7 Polyp of stomach and duodenum; I10 Essential (primary) hypertension; E78.5 Hyperlipidemia, unspecified; I25.10 Atherosclerotic heart disease of native coronary artery without angina pectoris; K31.9 Disease of stomach and duodenum, unspecified
CPT/HCPCS: 43239; 88305

== ENCOUNTER → 2021-12-10 00:45 | Outpatient (CLI) | payer MEDICARE, SELFPAY ==
[2021-12-10] MEDS: Barium Sulfate 60% W/V 355 ML BTL PO (10:08)
--- NOTE | 2021-12-10 10:08 | DI.RAD_ITS ---
Exam(s) RF BARIUM SWALLOW EXAM: RF BARIUM SWALLOW CLINICAL HISTORY: Nl EGD. Food in esophagus/stomach after 12 hr NPO, Vomiting R11.10 TECHNIQUE: COMPARISON: CR XR CERVICAL SPINE COMP 4-5V from 01/12/2021 FINDINGS: Preliminary films of the chest and neck show no specific abnormality. Barium was ingested and showed a small incidental is anchors diverticulum, measuring up to about 12 millimeters in diameter. There were marked tertiary contractions of the esophagus. No focal esophageal mucosal lesion identified. There was persistent spasm of the distal esophagus in the distal esophagus was not ideally seen at t he GE junction. Please correlate with recent endoscopic evaluation for any distal esophageal lesion. 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 Severe tertiary contractions of the esophagus with persistent distal esophageal spasm. RADIATION DOSE DELIVERED: Total DLP
== END ==
PROVIDERS: PCP Nurse Practitioner Family; Visit Provider Surgery
DX: K22.5 Diverticulum of esophagus, acquired (principal); K22.4 Dyskinesia of esophagus; R11.10 Vomiting, unspecified
CPT/HCPCS: 74221

== ENCOUNTER 2023-12-26 14:00 | Outpatient (CLI) | payer MEDICARE, SELFPAY ==
--- NOTE | 2023-12-26 14:00 | RT.EKG_ITS ---
APPROVED REPORT Exam: Resting ECG Reason for Exam: syncope Patient Location: O HR:56 bpm ECG Measurements Heart Rate 56 AXIS MS 222 P 48 QRSd 97 QRS -10 QT 409 T 59 QTc 395 Conclusion Sinus rhythm...normal P axis, V-rate 50- 99 Ventricular bigeminy...bigeminy string>4 w/ V complexes Prolonged MS interval...MS >220, V-rate 50- 90 Anteroseptal infarct, age indeterminate...Q >35mS, T neg, V1-V2
== END 2023-12-26 14:01 | disposition home or self-care (01) ==
LOC: DI.CM 14:01
PROVIDERS: PCP Nurse Practitioner Family; Visit Provider Nurse Practitioner Family
DX: R55 Syncope and collapse (principal); R00.1 Bradycardia, unspecified; I49.8 Other specified cardiac arrhythmias; I21.09 ST elevation (STEMI) myocardial infarction involving other coronary artery of anterior wall
CPT/HCPCS: 93010

== ENCOUNTER 2023-12-26 14:49 | Inpatient (IN) | payer MEDICARE, SELFPAY ==
[2023-12-26] VITALS (77 sets, daily range): BP systolic 96–170; BP diastolic 46–107; PULSE 48–78; RESP 8–28; TEMP 36.6–37.3; O2SAT 92–100
--- NOTE | 2023-12-26 14:45 | RT.EKG_ITS ---
APPROVED REPORT Exam: Resting ECG Reason for Exam: SOB Patient Location: E HR:59 bpm ECG Measurements Heart Rate 59 AXIS ME 219 P 27 QRSd 92 QRS -4 QT 413 T 36 QTc 410 Conclusion Sinus bradycardia. 59 no stemi
--- NOTE | 2023-12-26 15:15 | RT.EKG_ITS ---
APPROVED REPORT Exam: Resting ECG Reason for Exam: syncope Patient Location: E HR:59 bpm ECG Measurements Heart Rate 59 AXIS NJ 223 P 20 QRSd 93 QRS -16 QT 411 T 42 QTc 406 Conclusion Sinus bradycardia 59 no stemi
[2023-12-26 15:23] LABS: Abs Immature Grans 0.02 10^3/uL (0.0-0.06); Absolute Eosinophil Count 1.07 10^3/uL (0.0-0.7); Absolute Monocyte Count 0.81 10^3/uL (0.1-0.8); Absolute Neutrophil Count 4.85 10^3/uL (1.2-6.7); Eosinophils % 10.9 %; HCT 42.1 % (40.0-50.0); HGB 14.7 g/dL (13.5-17.5); Immature Grans % 0.2 %; Lymphocytes % 30.5 %; MCH 36.2 pg (27.0-33.0); MCHC 34.9 % (32.0-36.0); MCV 104 fL (80-95); MPV 9.1 fL (8.0-11.0); Monocytes % 8.2 %; Neutrophils % 49.2 %; Platelet Count 226 10^3/uL (130-400); RBC 4.06 10^6/uL (4.36-5.78); WBC 9.85 10^3/uL (4.4-10.8)
--- NOTE | 2023-12-26 15:30 | RT.EKG_ITS ---
APPROVED REPORT Exam: Resting ECG Reason for Exam: Low HR Patient Location: I HR:60 bpm ECG Measurements Heart Rate 60 AXIS OK 215 P 32 QRSd 92 QRS -26 QT 429 T 50 QTc 428 Conclusion Sinus rhythm...normal P axis, V-rate 60- 99 Ventricular bigeminy...bigeminy string>4 w/ V complexes Borderline prolonged OK interval...OK >212, V-rate 50- 90 Anteroseptal infarct, age indeterminate...Q >35mS, T neg, V1-V2 Sinus rhythm at a rate of 36 with frequent PVCs in a pattern of ventricular bigeminy. First-degree A V block. QTc within normal limits. Appears similar to prior. No ST segment abnormalities.
[2023-12-26 15:39] LABS: ALT 25 U/L (16-63); AST 21 U/L (15-37); Albumin 3.4 g/dL (3.4-5.0); Alkaline Phosphatase 103 U/L (46-116); Anion Gap 8.9 mmol/L (3-11); BUN 13 mg/dL (7-18); Bilirubin, Total 0.97 mg/dL (0.2-1.0); CO2 27.1 mmol/L (21.0-32.0); CREATININE 1.1 mg/dL (0.70-1.30); Calcium 8.8 mg/dL (8.5-10.1); Chloride 104 mmol/L (98-107); Estimated GFR 69.57 (mL/min/1.73m2); Glucose 106 mg/dL (74-106); Magnesium 1.9 mg/dL (1.8-2.4); Potassium 3.7 mmol/L (3.5-5.1); Sodium 140 mmol/L (136-145); Total Protein 7.3 g/dL (6.4-8.2)
--- NOTE | 2023-12-26 16:42 | W.ED.GENAD ---
Discharge Plan Disposition Patient Disposition: Admit to [facility] Condition: Stable Discharge Details Chief Complaint: Dizzy/Sync Clinical Impression: Cardiac dysrhythmia, Syncope Primary Care Provider: Constantine Lincoln ED Provider: Reena Mejia Home Meds and New Rx's Prescriptions: No Action aspirin 325 MG tablet 325 mg PO DAILY HPI General Date/Time Provider Initiated Documentation: 12/26/23 15:07. Limitations to Documentation: no limitations. Information obtained by: patient. HPI Narrative: 78-year-old gentleman with past medical history of achalasia presents for evaluation of syncopal episode. Patient reports that over the last 10 years he has had recurrent intermittent dizziness. He has had 2 episodes of syncope. One was a few months ago. He was evaluated by cardiology a few weeks ago and thought to have some dehydration and low blood pressure causing some of these episodes. He was given a patch for cardiac monitoring but he states that it fell off after less than a day and he could not reapply it. He says he was scheduled for echocardiogram but it is not till February. He reports that last night he felt acutely dizzy while walking. He is not having any chest pain or shortness of breath. He states he reached out his hands on the wall to brace himself and then completely lost consciousness. No shaking or seizure-like activity, no incontinence. Denies any head trauma. They went to his PCP today who referred them to the emergency department for further evaluation. Related Data Home Medications Medication Instructions Recorded Confirmed aspirin 325 mg tablet 325 mg PO DAILY 11/22/12 12/26/23 aspirin 81 mg chewable tablet 81 mg PO DAILY 12/26/23 12/26/23 atorvastatin 40 mg tablet 40 mg PO DAILY 12/26/23 12/26/23 omeprazole 20 mg capsule,delayed mg PO DAILY 12/26/23 release ramipril 2.5 mg capsule mg PO DAILY 12/26/23 Allergies Allergy/AdvReac Type Severity Reaction Status Date / Time No Known Allergies Allergy Verified 12/26/23 16:22 General Stated Complaint: Dizzy/Sync JULIANNA: 3 Exam Narrative Exam Narrative: Review of Systems: All systems reviewed & are unremarkable except as noted in HPI and below Well-developed, no acute distress NCAT no c spine tenderness PERRL, normal conjunctiva bradycardia, frequent ectopy noted on monitor normal blood pressure Unlabored respiratory effort, clear bilaterally Nondistended abdomen Extremities w/o deformity, no cyanosis, no edema No rashes or lesions. no focal neurologic deficits Appropriate mood and affect Course Vital Signs Vital signs: Vital Signs Temperature 36.6 C 12/26/23 14:58 Pulse 66 12/26/23 14:58 Respiratory Rate 18 12/26/23 14:58 Blood Pressure 144/80 H 12/26/23 14:58 Pulse Oximetry 99 12/26/23 14:58 Temperature 36.6 C 12/26/23 14:58 Pulse 62 12/26/23 16:21 Pulse 59 L 12/26/23 16:21 Respiratory Rate 16 12/26/23 16:21 Respiratory Effort Normal 12/26/23 15:35 Respiratory Depth Normal 12/26/23 15:35 Respiratory Pattern Normal 12/26/23 15:35 Blood Pressure 117/85 12/26/23 16:21 Blood Pressure Mean 91 12/26/23 16:21 Blood Pressure Position Supine 12/26/23 14:58 Pulse Oximetry 99 12/26/23 16:21 Oxygen Delivery Method Room Air 12/26/23 14:58 Oxygen Flow Rate 0 12/26/23 14:58 Pain Level 0 12/26/23 15:35 Lab/Test Results Lab/Test Results: Laboratory Tests Range/Units 12/26/23 15:18 WBC (4.4-10.8) 10^3/uL 9.85 RBC (4.36-5.78) 10^6/uL 4.06 L Hgb (13.5-17.5) g/dL 14.7 Hct (40.0-50.0) % 42.1 MCV (80-95) fL 104 H MCH (27.0-33.0) pg 36.2 H MCHC (32.0-36.0) % 34.9 RDW (11.8-14.1) % 13.0 Plt Count (130-400) 10^3/uL 226 MPV (8.0-11.0) fL 9.1 Immature Gran % % 0.2 Neutrophils % % 49.2 Lymphocytes % % 30.5 Monocytes % % 8.2 Eosinophils % % 10.9 Basophils % % 1.0 Nucleated RBC % (0.0-0.3) % 0.0 Absolute Neutrophils (1.2-6.7) 10^3/uL 4.85 Absolute Lymphocytes (1.2-3.4) 10^3/uL 3.00 Absolute Monocytes (0.1-0.8) 10^3/uL 0.81 H Absolute Eosinophils (0.0-0.7) 10^3/uL 1.07 H Absolute Basophils (0.0-0.2) 10^3/uL 0.10 Sodium (136-145) mmol/L 140 Potassium (3.5-5.1) mmol/L 3.7 Chloride (98-107) mmol/L 104 Carbon Dioxide (21.0-32.0) mmol/L 27.1 Anion Gap (3-11) mmol/L 8.9 BUN (7-18) mg/dL 13 Creatinine (0.70-1.30) mg/dL 1.1 Est GFR (CKD-EPI 2020) (mL/min/1.73m2) 69.57 Glucose (74-106) mg/dL 106 Calcium (8.5-10.1) mg/dL 8.8 Magnesium (1.8-2.4) mg/dL 1.9 Total Bilirubin (0.2-1.0) mg/dL 0.97 AST (15-37) U/L 21 ALT (16-63) U/L 25 Alkaline Phosphatase (46-116) U/L 103 Total Protein (6.4-8.2) g/dL 7.3 Albumin (3.4-5.0) g/dL 3.4 Medical Decision Making Emergent evaluation of syncope. There is concern for bradycardia and possible dysrhythmia. His initial EKG demonstrates bradycardia without any evidence of ectopy or significant block, however on the monitor I am observing bigeminy. He is also having significant pauses. The rate is being read in the 60s with the bigeminy, I think because it is reading the PVCs and I believe that his rate is significantly slower than this. He has some mild dizziness, but is essentially otherwise asymptomatic. His blood pressure is stable I do not think that he needs emergent pacemaker. The pads were placed as a precaution. Discussed with cardiology, they have accepted the patient for listing tomorrow. In the interim, the patient will be admitted to the hospital here on telemetry monitoring. Goal to repeat K above 4, magnesium above 2. An echo can be performed before transport that would be beneficial. The patient's abnormal telemetry strips will be sent for further evaluation by EP. Patient and updated on plan Medical Records Medical records reviewed: Yes I reviewed the patient's medical records. Lab Data Lab results reviewed: Yes I reviewed the patient's lab results. Quality:SDOH Health Related Social Needs: No Data to Display PFSH All Active Problems (Updated 12/26/23 @ 17:14 by Reena Mejia MD) Cardiac dysrhythmia (Acute) Syncope (Chronic) Esophageal spasm (Acute) Hyperlipidemia (Acute) Tubular adenoma of colon (Acute ~02/2021) Smoker (Acute) Overweight (Acute) GERD (gastroesophageal reflux disease) (Chronic) Medical History Coronary artery disease (11/19/14) h/0 cabg High cholesterol Erectile disorder, generalized, mild Surgical History History of colonoscopy (~02/2021) H/O surgical procedure 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 Father , 80's No problems noted. Sister , 70's No problems noted. Brother , 70's No problems noted. Brother , 70's No problems noted. Son No problems noted. Daughter No problems noted. Maternal Grandfather No problems noted. Paternal Grandfather No problems noted. Maternal Grandmother No problems noted. Paternal Grandmother No problems noted. Social History Smoking/Tobacco Use Status: Current every day Tobacco Type: cigarettes Tobacco: How many years used: 30 Quit status: has quit before Second Hand Exposure: Yes Smoking risk assessment performed?: Yes Alcohol Intake: current Alcohol Intake frequency: a few times a week Alcohol type: hard liquor Details: Reports drinking 4-5 drinks of Vodka per day Drug use: Never Substance use type: does not use Caregiver/Support person: No Household members: spouse Housing: house Pets and animals: No Sexually active: Yes Do you think of yourself as: straight/heterosexual Current gender identity: male What is your relationship status?: How often do you talk on the phone with friends or family?: once per week How often do you get together with friends or relatives?: twice per week How often do you attend restorationism or confucianism services?: 1-3 times per year Do you belong to any clubs or organized social groups?: no Panel score (0-1 are the most socially isolated patients): 2 What type of physical activity do you participate in: none Zaina/Jewish: Congregational Special zaina needs: No Seatbelt use: always Helmet use: No Drive intox 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
[2023-12-26 17:06] LABS: NT-proBNP 666 pg/mL (<300); Troponin I < 50 ng/L (< or =60)
--- NOTE | 2023-12-26 17:13 | HPE_ITS ---
Date of service: 12/26/23 Time of Service: 17:17 Assessment and Plan Assessment and plan (1) Symptomatic bradycardia: Status: Acute Assessment and plan: -as noted in HPI patient had episode of syncope with LOC and without head injury that prompted him to go to his PCP who sent him to the ED -while in the ED it was noted that he was having significant PVCs/bigem and his actual HR was in the 30's -pacer pads were placed in the ED and will remain on the patient -case discussed with [facility] cardiology who has accepted patient for transfer within the next 24hrs for urgent pacemaker placement -rec K >4 and Mg >2, s/p replacement in ED, will check AM BMP (2) Esophageal spasm: Status: Acute Assessment and plan: -chronic History of Present Illness History of Present Illness Chief Complaint: syncope Narrative: 78yo male with PMH of unexplained syncopal episodes since emergency department after experiencing 2 episodes of syncope. Patient had first episode of syncope few months ago at that time he was evaluated by cardiology found to have some dehydration which was thought to be primary cause of syncope. He was also given a Zio patch but according the patient fell off less than 24 hours after it was placed and he cannot reapply it. He reportedly had been scheduled for an echocardiogram but not until February. However, the night prior to arrival patient stated that he began to feel dizzy when walking he did not have any chest pain or shortness of breath. He felt unsteady and reached out to the wall with his hands to brace himself however the patient stated he lost consciousness. He denied any head trauma, or incontinence upon waking up. He initially presented to his PCPs office who sent him to the emergency department for further evaluation. In the emergency department the patient was noted as having initially normal vital signs, CBC, and CMP. However, on review of telemetry and EKG patient was having frequent PVCs, and his actual heart rate was in the mid 30s. Additionally, he was also noted as having significant pauses. However, patient remained hemodynamically stable. Emergency room physician discussed the case with [facility] cardiology who accepted patient for transfer within the next 24 hours for pacemaker placement. They recommended keeping patient's potassium above 4 and magnesium above 2 for which he was given IV repletion in the emergency department. Emergency room physician paged hospitalist for admission for patient with symptomatic bradycardia who will be transferred to [facility] tomorrow for urgent pacemaker placement. Review of Systems All systems reviewed & are unremarkable except as noted in HPI and below PFSH All Active Problems (Updated 12/26/23 @ 17:25 by Stanley Flood MD) Symptomatic bradycardia (Acute) Cardiac dysrhythmia (Acute) Syncope (Chronic) Esophageal spasm (Acute) Hyperlipidemia (Acute) Tubular adenoma of colon (Acute ~02/2021) Smoker (Acute) Overweight (Acute) GERD (gastroesophageal reflux disease) (Chronic) Medical History Coronary artery disease (11/19/14) h/0 cabg High cholesterol Erectile disorder, generalized, mild Surgical History History of colonoscopy (~02/2021) H/O surgical procedure 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 Father , 80's No problems noted. Sister , 70's No problems noted. Brother , 70's No problems noted. Brother , 70's No problems noted. Son No problems noted. Daughter No problems noted. Maternal Grandfather No problems noted. Paternal Grandfather No problems noted. Maternal Grandmother No problems noted. Paternal Grandmother No problems noted. Social History Smoking/Tobacco Use Status: Current every day Tobacco Type: cigarettes Tobacco: How many years used: 30 Quit status: has quit before Second Hand Exposure: Yes Smoking risk assessment performed?: Yes Alcohol Intake: current Alcohol Intake frequency: a few times a week Alcohol type: hard liquor Details: Reports drinking 4-5 drinks of Vodka per day Drug use: Never Substance use type: does not use Caregiver/Support person: No Household members: spouse Housing: house Pets and animals: No Sexually active: Yes Do you think of yourself as: straight/heterosexual Current gender identity: male What is your relationship status?: How often do you talk on the phone with friends or family?: once per week How often do you get together with friends or relatives?: twice per week How often do you attend latter-day or protestant services?: 1-3 times per year Do you belong to any clubs or organized social groups?: no Panel score (0-1 are the most socially isolated patients): 2 What type of physical activity do you participate in: none Zaina/Mosque: Orthodox Special zaina needs: No Seatbelt use: always Helmet use: No Drive intox or ride w/intox charter bus driver: No Do you feel safe at home: Yes Do you feel safe in your relationship?: Yes Meds Allergies and Home Medications Allergies Allergy/AdvReac Type Severity Reaction Status Date / Time No Known Allergies Allergy Verified 12/26/23 16:22 Home Medications Medication Instructions Recorded Confirmed Type aspirin 325 mg tablet 325 mg PO DAILY 11/22/12 12/26/23 History aspirin 81 mg chewable tablet 81 mg PO DAILY 12/26/23 12/26/23 History atorvastatin 40 mg tablet 40 mg PO DAILY 12/26/23 12/26/23 History omeprazole 20 mg capsule,delayed 20 mg PO DAILY 12/26/23 12/26/23 History release ramipril 2.5 mg capsule 2.5 mg PO DAILY 12/26/23 12/26/23 History Exam Narrative Exam Narrative: Well-appearing older gentleman laying in bed in no acute distress, ANO x 4, heart rate appears irregularly irregular with rate in the 60s on palpation (however, this is not patient's true pulse rate, see assessment and plan for further details), lungs clear to auscultation bilaterally, abdomen soft, nontender, nondistended Results Labs 12/26/23 15:18 12/26/23 15:18 Labs: Laboratory Results - last 24 hr 12/26/23 15:18 WBC 9.85 RBC 4.06 L Hgb 14.7 Hct 42.1 MCV 104 H MCH 36.2 H MCHC 34.9 RDW 13.0 Plt Count 226 MPV 9.1 Immature Gran % 0.2 Neutrophils % 49.2 Lymphocytes % 30.5 Monocytes % 8.2 Eosinophils % 10.9 Basophils % 1.0 Nucleated RBC % 0.0 Absolute Neutrophils 4.85 Absolute Lymphocytes 3.00 Absolute Monocytes 0.81 H Absolute Eosinophils 1.07 H Absolute Basophils 0.10 Sodium 140 Potassium 3.7 Chloride 104 Carbon Dioxide 27.1 Anion Gap 8.9 BUN 13 Creatinine 1.1 Est GFR (CKD-EPI 2020) 69.57 Glucose 106 Calcium 8.8 Magnesium 1.9 Total Bilirubin 0.97 AST 21 ALT 25 Alkaline Phosphatase 103 Troponin I < 50 NT-Pro-B Natriuret Pep 666 H Total Protein 7.3 Albumin 3.4 Last Vital Signs Temp 97.9 F 12/26/23 14:58 Pulse 62 12/26/23 16:21 Resp 16 12/26/23 16:21 BP 117/85 12/26/23 16:21 Pulse Ox 99 12/26/23 16:21 Time Spent Time spent with Patient: >75 minutes Time was spent: preparing to see the patient(eg.review tests), obtaining and/or reviewing separately otained hiistory, ordering medications,tests, procedures, referring, communicating with other health director of patient care, indepentently interpreting results, counseling the patient and care coordination
[2023-12-26] MEDS: MAGNESIUM SULFATE 2 GM/50 ML BAG IVINF (17:29)
[2023-12-26] MEDS: POTASSIUM CHLORIDE 10 MEQ/100 ML BAG 100 MEQ IVINF (17:30)
--- NOTE | 2023-12-26 17:40 | W.PC.ACHO ---
Registration Status: REG ER Primary Language: Preferred Language: Persian ED Information & Data Chief Complaint Dizzy/Sync 12/26/23 16:48 Triage Note dizziness with Syncopal 12/26/23 14:58 episodes, + orthostatic at PCP office, seen by [facility] cardio Medical / Surgical History (Last Reviewed 12/26/23 @ 16:46 by Reena Mejia MD) Coronary artery disease (11/19/14) High cholesterol Erectile disorder, generalized, mild (Last Reviewed 12/26/23 @ 16:46 by Reena Mejia MD) History of colonoscopy (~02/2021) H/O surgical procedure Most Recent Vital Signs Temperature 36.6 C 12/26/23 14:58 Pulse 62 12/26/23 16:21 Pulse 59 L 12/26/23 16:21 Respiratory Rate 16 12/26/23 16:21 Respiratory Effort Normal 12/26/23 15:35 Respiratory Depth Normal 12/26/23 15:35 Respiratory Pattern Normal 12/26/23 15:35 Blood Pressure 117/85 12/26/23 16:21 Blood Pressure Mean 91 12/26/23 16:21 Blood Pressure Position Supine 12/26/23 14:58 Pulse Oximetry 99 12/26/23 16:21 Oxygen Delivery Method Room Air 12/26/23 14:58 Oxygen Flow Rate 0 12/26/23 14:58 Pain Level 0 12/26/23 15:35 Allergies No Known Allergies Allergy (Verified 12/26/23 16:22) Active Medications Generic Name Dose Route Start Last Admin Trade Name Freq PRN Reason Stop Dose Admin Potassium Chloride 10 meq in 100 mls @ 100 mls/hr 12/26/23 17:00 12/26/23 17:30 IVINF 12/26/23 17:59 100 mls/hr NOW ONE Administration IV IV Catheter Type [Right Saline Lock Antecubital] IV Catheter Gauge [Right 18 Antecubital] Diagnostics 12/26/23 Range/Units 15:18 WBC 9.85 (4.4-10.8) 10^3/uL RBC 4.06 L (4.36-5.78) 10^6/uL Hgb 14.7 (13.5-17.5) g/dL Hct 42.1 (40.0-50.0) % MCV 104 H (80-95) fL MCH 36.2 H (27.0-33.0) pg MCHC 34.9 (32.0-36.0) % RDW 13.0 (11.8-14.1) % Plt Count 226 (130-400) 10^3/uL MPV 9.1 (8.0-11.0) fL Immature Gran % 0.2 % Neutrophils % 49.2 % Lymphocytes % 30.5 % Monocytes % 8.2 % Eosinophils % 10.9 % Basophils % 1.0 % Nucleated RBC % 0.0 (0.0-0.3) % Absolute Neutrophils 4.85 (1.2-6.7) 10^3/uL Absolute Lymphocytes 3.00 (1.2-3.4) 10^3/uL Absolute Monocytes 0.81 H (0.1-0.8) 10^3/uL Absolute Eosinophils 1.07 H (0.0-0.7) 10^3/uL Absolute Basophils 0.10 (0.0-0.2) 10^3/uL Sodium 140 (136-145) mmol/L Potassium 3.7 (3.5-5.1) mmol/L Chloride 104 (98-107) mmol/L Carbon Dioxide 27.1 (21.0-32.0) mmol/L Anion Gap 8.9 (3-11) mmol/L BUN 13 (7-18) mg/dL Creatinine 1.1 (0.70-1.30) mg/dL Est GFR (CKD-EPI 2020) 69.57 (mL/min/1.73m2) Glucose 106 (74-106) mg/dL Calcium 8.8 (8.5-10.1) mg/dL Magnesium 1.9 (1.8-2.4) mg/dL Total Bilirubin 0.97 (0.2-1.0) mg/dL AST 21 (15-37) U/L ALT 25 (16-63) U/L Alkaline Phosphatase 103 (46-116) U/L Troponin I < 50 (< or =60) ng/L NT-Pro-B Natriuret Pep 666 H (<300) pg/mL Total Protein 7.3 (6.4-8.2) g/dL Albumin 3.4 (3.4-5.0) g/dL Intake and Output - 24 Hour Total 12/26/23 14:49 thru 12/26/23 14:58 Weight 86.183 kg Falls Risk Assessment History of Falls No History 12/26/23 15:35 Fall Total Score 0 12/26/23 15:35 Level of Risk Standard/Low Risk 12/26/23 15:35 Problems (Last Reviewed 12/26/23 @ 16:46 by Reena Mejia MD) Symptomatic bradycardia (Acute) Cardiac dysrhythmia (Acute) Syncope (Chronic) Esophageal spasm (Acute) v v v v v v v v v Sending and/or Receiving Nurses: Please use comment section below to note any information pertinent to the patient hand-off not included above. Information / Comments: accompanying patient. Lives often in [place]. Recent [facility] cardiology apt. Syncope today, Orthostatic. Stable. Sinus Abdoul HR 50s frequent PVCs /Bigemeny/ R on T/ pauses after PVCs, asymptomatic when resting in bed. 48-50 pulse to palpation. MAPs 80 or greater 100% RA. A & O x3. 1 assist. #18 RAC, 2 gm mag infusing now. 10 K infusing now. CXR negative. Plan is transfer to [facility] tomorrow. Tray ordered. Med rec done. Hasn't been taking any meds for 3 weeks. Unsure of why - has had recent med changes. Report received from: [employer] Howell
[2023-12-26] MEDS: Normal Saline Flush 10 ML SYR IVP (20:49)
--- NOTE | 2023-12-26 22:02 | W.PM.DS.N ---
Date of service: 01/02/24 Time of Service: 22:02 DS: Diagnosis Discharge Diagnosis (1) Symptomatic bradycardia: Start date: 12/26/23 Status: Acute Asessment and Plan: Patient began to have symptoms 10 years ago with near syncopal episodes which worsened in the last month with 2 episodes. He was found to have bradycardia with frequent PVCs upon mission and has been stable with sinus bradycardia and less frequent PVCs with potassium and magnesium repleted on admission. He is excepted to [facility] cardiology for permanent pacemaker placement for transfer via ambulance with health care administrator and external pads for external pacing if needed in transfer. Presently he is stable by exam and asymptomatic with external pacing pads in place. He had negative evaluation for acute ischemia. (2) Esophageal spasm: Status: Chronic Asessment and Plan: Continue PPI and symptomatic treatment with a history of GERD and being overweight with tobacco use. Discharge Plan Disposition Patient Disposition: Transfer-Acute Inpatient Care Specific Acute Inpt Facility: [facility] Condition: Serious Discharge Details Reason For Visit: symptomatic bradycardia Admit Date/Time: 12/26/23 18:33 Admit Provider: Stanley Flood Attending Provider: Stanley Flood Primary Care Provider: [facility] Course Hospital Course: This is a 78-year-old gentleman who has had symptomatic bradycardia with frequent PVCs upon admission on 12/26/2023. He has been having an evaluation for syncopal episodes recently and states that he had his first symptoms more than 10 years ago. This may be associate with the same problem. His PVCs resolved with repletion of potassium and magnesium and he was asymptomatic with external pacer pads in place at the time of transfer. He was transferred via EMS with health care administrator attendance to [facility] cardiology service for permanent pacemaker placement within the next 24 hours per he is a full code. Home Meds and New Rx's Prescriptions: No Action aspirin 325 MG tablet 325 mg PO DAILY Hold Instructions: Changed by Provider aspirin 81 mg tablet,chewable 81 mg PO DAILY ramipril 2.5 mg capsule 2.5 mg PO DAILY omeprazole 20 mg capsule,delayed release(DR/EC) 20 mg PO DAILY atorvastatin 40 mg tablet 40 mg PO DAILY Discharge Instructions Activity:: Bedrest in transfer Equipment/Supplies:: No Equipment Needed Diet:: NPO Discharge Orders Discharge Orders: Discharge Order (Routine); Ordered 12/26/23 Ordered By: Claude Ponce DS: Summary Time Spent with Patient providing and/or coordinating discharge services: Greater than 30 minutes Status at Discharge Functional status at discharge: bed bound Overall status at discharge: patient is not back to baseline Mental Status: mental status grossly normal Speech and Movement: pressured speech Mood: congruent mood Affect: anxious affect Quality:SDOH Health Related Social Needs: No Data to Display Exam Narrative Exam Narrative: General: Patient appears slightly older than stated age, slightly pressured speech but normal affect. He is in no acute distress. He is darkly tanned with actinic changes over sun exposed area of skin especially over the face. HEENT: Normocephalic, eyes with pupils equal round to light symmetrically, extraocular intact and sclera anicteric. Oropharynx with moist Koza and poor dentition with missing and carious teeth. Neck: Supple without JVD. Back: Stooped posture without CVA tenderness. Lungs: Fair aeration clear to auscultation with bronchovesicular breath sounds diffusely. No focalizing rales or rhonchi. Heart: Bradycardic rate and regular rhythm distant heart sounds no appreciable murmur or gallop. Abdomen: Obese contour, soft and nontender to palpation with no palpable hepatosplenomegaly. Extremities: No clubbing, cyanosis or edema. Currently tanned legs with some chronic skin changes and loss of hair. Neuro: Cranial nerves II to XII gross intact, no focal motor deficits and no tremor. Psych: Slightly anxious affect, normal mood. No abnormal thought processes. Remote and recent memory intact. Psych Mental Status: mental status grossly normal Speech and Movement: pressured speech Mood: congruent mood Affect: anxious affect DS: Data Vitals/I&O Vitals and I&O: Vital Signs Temperature 37.3 C 12/26/23 18:50 Temperature Source Temporal Artery Scan 12/26/23 18:50 Pulse 67 12/26/23 18:50 Pulse 58 L 12/26/23 17:40 Respiratory Rate 10 L 12/26/23 18:50 Respiratory Effort Normal 12/26/23 18:50 Respiratory Depth Normal 12/26/23 18:50 Respiratory Pattern Normal 12/26/23 18:50 Blood Pressure 123/62 12/26/23 18:50 Blood Pressure Mean 82 12/26/23 18:50 Blood Pressure Position Supine 12/26/23 18:50 Pulse Oximetry 99 07/02/24 18:50 Oxygen Delivery Method Room Air 12/26/23 18:50 Oxygen Flow Rate 0 12/26/23 18:50 Pain Level 0 12/26/23 18:50 Intake & Output 12/25/23 12/26/23 12/26/23 23:59 11:59 23:59 Intake Total 150 / 150 Balance 150 / 150 Weight 86.183 kg Intake: IV 150 / 150 Data Completed and Pending Labs on day of discharge: Labs from last 24 hours 12/26/23 15:18 WBC 9.85 RBC 4.06 L Hgb 14.7 Hct 42.1 MCV 104 H MCH 36.2 H MCHC 34.9 RDW 13.0 Plt Count 226 MPV 9.1 Immature Gran % 0.2 Neutrophils % 49.2 Lymphocytes % 30.5 Monocytes % 8.2 Eosinophils % 10.9 Basophils % 1.0 Nucleated RBC % 0.0 Absolute Neutrophils 4.85 Absolute Lymphocytes 3.00 Absolute Monocytes 0.81 H Absolute Eosinophils 1.07 H Absolute Basophils 0.10 Sodium 140 Potassium 3.7 Chloride 104 Carbon Dioxide 27.1 Anion Gap 8.9 BUN 13 Creatinine 1.1 Est GFR (CKD-EPI 2020) 69.57 Glucose 106 Calcium 8.8 Magnesium 1.9 Total Bilirubin 0.97 AST 21 ALT 25 Alkaline Phosphatase 103 Troponin I < 50 NT-Pro-B Natriuret Pep 666 H Total Protein 7.3 Albumin 3.4 PFSH All Active Problems Symptomatic bradycardia (Acute) Cardiac dysrhythmia (Acute) Syncope (Chronic) Esophageal spasm (Chronic) Hyperlipidemia (Acute) Tubular adenoma of colon (Acute ~02/2021) Smoker (Acute) Overweight (Acute) GERD (gastroesophageal reflux disease) (Chronic) Medical History Coronary artery disease (11/19/14) h/0 cabg High cholesterol Erectile disorder, generalized, mild Surgical History History of colonoscopy (~02/2021) H/O surgical procedure 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 Father , 80's No problems noted. Sister , 70's No problems noted. Brother , 70's No problems noted. Brother , 70's No problems noted. Son No problems noted. Daughter No problems noted. Maternal Grandfather No problems noted. Paternal Grandfather No problems noted. Maternal Grandmother No problems noted. Paternal Grandmother No problems noted. Social History Smoking/Tobacco Use Status: Current every day Tobacco Type: cigarettes Tobacco: How many years used: 30 Quit status: has quit before Second Hand Exposure: Yes Smoking risk assessment performed?: Yes Alcohol Intake: current Alcohol Intake frequency: a few times a week Alcohol type: hard liquor Details: Reports drinking 4-5 drinks of Vodka per day Drug use: Never Substance use type: does not use Caregiver/Support person: No Household members: spouse Housing: house Pets and animals: No Sexually active: Yes Do you think of yourself as: straight/heterosexual Current gender identity: male What is your relationship status?: How often do you talk on the phone with friends or family?: once per week How often do you get together with friends or relatives?: twice per week How often do you attend mosque or zoroastrianism services?: 1-3 times per year Do you belong to any clubs or organized social groups?: no Panel score (0-1 are the most socially isolated patients): 2 What type of physical activity do you participate in: none Zaina/Restorationism: Voodoo Special zaina needs: No Seatbelt use: always Helmet use: No Drive intox or ride w/intox security patrol driver: No Do you feel safe at home: Yes Do you feel safe in your relationship?: Yes Time Spent with Patient Time Spent with Patient: 45-69 minutes Time was spent: preparing to see the patient(eg.review tests), obtaining and/or reviewing separately otained hiistory, referring, communicating with other health small animal caretaker, indepentently interpreting results, counseling the patient and care coordination
[2023-12-27] VITALS (46 sets, daily range): BP systolic 93–129; BP diastolic 61–77; PULSE 46–72; RESP 15–29; TEMP 36.6; O2SAT 92–98
--- NOTE | 2023-12-27 06:18 | NUR.NOTE ---
call from [facility] fromSelena in pt placement with bed for pt. Report to be given at 0700 so as to give it to day shift.
[2023-12-27 07:08] LABS: HCT 37.1 % (40.0-50.0); HGB 13.4 g/dL (13.5-17.5); MCH 36.3 pg (27.0-33.0); MCHC 36.1 % (32.0-36.0); MCV 101 fL (80-95); MPV 9.8 fL (8.0-11.0); Platelet Count 207 10^3/uL (130-400); RBC 3.69 10^6/uL (4.36-5.78); RDW 12.7 % (11.8-14.1); RDW-SD 47.6 fL; WBC 9.01 10^3/uL (4.4-10.8)
[2023-12-27 07:34] LABS: ALT 23 U/L (16-63); AST 17 U/L (15-37); Albumin 2.8 g/dL (3.4-5.0); Alkaline Phosphatase 89 U/L (46-116); Anion Gap 7.5 mmol/L (3-11); BUN 11 mg/dL (7-18); Bilirubin, Total 1.06 mg/dL (0.2-1.0); CO2 25.5 mmol/L (21.0-32.0); CREATININE 0.9 mg/dL (0.70-1.30); Calcium 8.3 mg/dL (8.5-10.1); Chloride 108 mmol/L (98-107); Estimated GFR 88.51 (mL/min/1.73m2); Glucose 114 mg/dL (74-106); Potassium 3.5 mmol/L (3.5-5.1); Sodium 141 mmol/L (136-145)
== END 2023-12-27 07:15 | disposition short-term general hospital (02) | DRG 310 ==
LOC: ER 17:14 → ICU 18:35
PROVIDERS: Admitting Provider Family Medicine; Emergency Provider Emergency Medicine; PCP Nurse Practitioner Family; Visit Provider Family Medicine
DX: I49.3 Ventricular premature depolarization (principal); R00.1 Bradycardia, unspecified; R55 Syncope and collapse; K22.4 Dyskinesia of esophagus; I49.5 Sick sinus syndrome; K21.9 Gastro-esophageal reflux disease without esophagitis; F17.210 Nicotine dependence, cigarettes, uncomplicated; I25.10 Atherosclerotic heart disease of native coronary artery without angina pectoris; Z95.1 Presence of aortocoronary bypass graft; E78.00 Pure hypercholesterolemia, unspecified; Z79.82 Long term (current) use of aspirin; E66.3 Overweight; Z68.25 Body mass index [BMI] 25.0-25.9, adult
CPT/HCPCS: 00123; 36415; 80053; 85027; 93005; 96361; 96365; 99285; 83735; 83880; 84484; 85025; 93010; 99223; J3475; J3480

== ENCOUNTER → 2024-01-24 14:17 | Outpatient (BNVA) | payer MEDICARE, SELFPAY | PROVIDERS: PCP Nurse Practitioner Family; Referring Provider Nurse Practitioner Family; Visit Provider Psychiatry & Neurology Neurology | DX: I95.1 Orthostatic hypotension (principal) | CPT/HCPCS: 99215 ==

== ENCOUNTER 2024-02-06 11:07 | Outpatient (CLI) | payer MEDICARE, SELFPAY ==
--- NOTE | 2024-02-06 11:00 | RT.EKG_ITS ---
APPROVED REPORT Exam: Resting ECG Reason for Exam: follow up Patient Location: O HR:57 bpm ECG Measurements Heart Rate 57 AXIS MD 218 P 38 QRSd 95 QRS -13 QT 431 T 57 QTc 420 Conclusion Sinus rhythm...normal P axis, V-rate 50- 99 Borderline prolonged MD interval...MD >212, V-rate 50- 90 Low voltage Poor R wave progression
== END 2024-02-06 11:08 | disposition home or self-care (01) ==
LOC: DI.CM 11:08
PROVIDERS: PCP Nurse Practitioner Family; Visit Provider Nurse Practitioner Family
DX: R55 Syncope and collapse (principal)
CPT/HCPCS: 93010

== ENCOUNTER → 2024-03-14 15:26 | Outpatient (BNVA) | payer MEDICARE, SELFPAY | PROVIDERS: PCP Nurse Practitioner Family; Referring Provider Nurse Practitioner Family; Visit Provider Psychiatry & Neurology Neurology | DX: I95.1 Orthostatic hypotension (principal) | CPT/HCPCS: 99213 ==